=== PATIENT | male | born 1960 | race Caucasian/White ===

== ENCOUNTER 2018-09-20 09:22 | Inpatient (IN) | payer SELFPAY ==
[~2018-09-20] VITALS: Ht 177.8 cm; Wt 79.4 kg
[2018-09-20] MEDS ORDERED: DIAZEPAM 50 MG/10 ML MDV IVP ONE ×2 (09:40→11:50)
--- NOTE | 2018-09-20 09:44 | ER Report ---
History and Physical Time Seen By MD: 09:42 Hx. of Stated Complaint: DETOX FROM ALCOHOL - SEIZURE ACTIVITY REPORTED THIS AM. SI HPI/ROS CHIEF COMPLAINT: Alcohol intoxication withdrawal suicidal ideation HISTORY OF PRESENT ILLNESS: 58-year-old male comes emergency Department after 6 months of binge drinking after his both his mother father and brother all in the last 6 months. Patient states she's been trying to kill himself he alcohol drinks 2/5 of vodka daily plus a 12 pack of beer. Patient states that he awoke this morning is in multiple blackout sessions and was tremorous and decided he does not want to kill himself is not sure if he wants to kill himself but he wants help. Patient denies any chest pain at this time nausea vomiting diarrhea fever chills. Patient states that he has a history of alcohol intoxication binge drinking and alcohol issues in the past but he has been sober for the last 5-7 years. Patient denies any access to firearms. Patient otherwise has no plan. Patient states his last requisites morning. REVIEW OF SYSTEMS: Respiratory: No cough, no dyspnea. Cardiovascular: No chest pain, no palpitations. Gastrointestinal: No vomiting, no abdominal pain. Musculoskeletal: No back pain. Remainder of the 14 system rev: Yes Allergies: Coded Allergies: No Known Drug Allergies (Unverified , 09/20/18) Home Meds No Active Prescriptions or Reported Meds Reviewed Nurses Notes: Yes Old Medical Records Reviewed: Yes Constitutional Vital Sign - Last 24 Hours 09/20/18 09:33 Temp 98.2 Pulse 128 Resp 20 B/P (MAP) 198/139 Pulse Ox 96 O2 Delivery Room Air Physical Exam General Appearance: The patient is alert, has no immediate need for airway protection and no current signs of toxicity. Tremorous Eyes: Pupils equal and round no injection. Respiratory: Chest is non tender, lungs are clear to auscultation. Cardiac: regular rate and rhythm [ ] Gastrointestinal: Abdomen is soft and non tender, no masses, bowel sounds normal. Musculoskeletal: Neck: Neck is supple and non tender. Extremities have full range of motion and are non tender. Skin: No rashes or lesions. [ ] DIFFERENTIAL DIAGNOSIS: After history and physical exam differential diagnosis was considered for alcohol withdrawal alcohol intoxication and alcohol abuse suicidal ideation with intent and plan Medical Decision Making Data Points Result Diagram: 09/20/18 0941 09/20/18 0941 Laboratory Hematology Test 09/20/18 09:35 09/20/18 09:41 Urine Color Yellow Urine Clarity Slightly-cloudy Urine pH 7.0 pH (4.8-9.5) Urine Specific [place] 1.010 Urine Protein 30 mg/dL (NEGATIVE) Urine Glucose (UA) Negative mg/dL (NEGATIVE) Urine Ketones Negative mg/dL (NEGATIVE) Urine Blood Negative (NEGATIVE) Urine Nitrite Negative (NEGATIVE) Urine Bilirubin Negative (NEGATIVE) Urine Urobilinogen Negative mg/dL (0.2-1.9) Urine Leukocyte Esterase Negative (NEGATIVE) Urine RBC None /HPF (0-2/HPF) Urine WBC 5 /HPF (0-5/HPF) Urine Squamous Epithelial Cells Many /LPF (</=FEW) Urine Bacteria Negative /HPF (NONE-FEW) Urine Hyaline Casts Few /LPF (NONE-FEW) Urine Mucus None /HPF (NONE-FEW) Urine Opiates Screen Negative Urine Barbiturates Screen Negative Ur Tricyclic Antidepressants Screen Negative Urine Phencyclidine Screen Negative Urine Amphetamines Screen Negative Urine Benzodiazepines Screen Negative Urine Cocaine Screen Negative Urine Cannabinoids Screen Positive Red Blood Count 4.78 M/uL (4.00-5.60) Mean Corpuscular Volume 98.3 fL (80.0-96.0) Mean Corpuscular Hemoglobin 33.1 pg (26.0-33.0) Mean Corpuscular Hemoglobin Concent 33.7 g/dL (32.0-36.0) Red Cell Distribution Width 16.3 % (11.5-14.5) Mean Platelet Volume 6.8 fL (7.2-11.1) Neutrophils (%) (Auto) 62.3 % (39.4-72.5) Lymphocytes (%) (Auto) 24.6 % (17.6-49.6) Monocytes (%) (Auto) 12.2 % (4.1-12.4) Eosinophils (%) (Auto) 0.4 % (0.4-6.7) Basophils (%) (Auto) 0.5 % (0.3-1.4) Nucleated RBC Relative Count (auto) 0.1 /100WBC Neutrophils # (Auto) 3.6 K/uL (2.0-7.4) Lymphocytes # (Auto) 1.4 K/uL (1.3-3.6) Monocytes # (Auto) 0.7 K/uL (0.3-1.0) Eosinophils # (Auto) 0.0 K/uL (0.0-0.5) Basophils # (Auto) 0.0 K/uL (0.0-0.1) Nucleated RBC Absolute Count (auto) 0.01 K/uL Sodium Level 137 mmol/L (137-145) Potassium Level 3.8 mmol/L (3.5-5.0) Chloride Level 100 mmol/L (98-107) Carbon Dioxide Level 23 mmol/L (22-30) Blood Urea Nitrogen 2 mg/dl (9-21) Creatinine 1.10 mg/dl (0.66-1.25) Glomerular Filtration Rate Calc > 60.0 Random Glucose 109 mg/dl (75-110) Calcium Level 8.9 mg/dl (8.4-10.2) Magnesium Level 1.4 mg/dl (1.7-2.2) Total Bilirubin 0.8 mg/dl (0.2-1.3) Aspartate Amino Transf (AST/SGOT) 353 U/L (0-35) Alanine Aminotransferase (ALT/SGPT) 255 U/L (0-56) Alkaline Phosphatase 200 U/L (0-126) Troponin I < 0.012 ng/ml Total Protein 8.1 g/dl (6.3-8.2) Albumin 4.6 g/dl (3.5-5.0) Salicylates Level < 10 mg/L Salicylate Last Dose Date unk Acetaminophen Level < 10 ug/ml Serum Alcohol 17 mg/dl Chemistry Test 09/20/18 09:35 09/20/18 09:41 Urine Color Yellow Urine Clarity Slightly-cloudy Urine pH 7.0 pH (4.8-9.5) Urine Specific [place] 1.010 Urine Protein 30 mg/dL (NEGATIVE) Urine Glucose (UA) Negative mg/dL (NEGATIVE) Urine Ketones Negative mg/dL (NEGATIVE) Urine Blood Negative (NEGATIVE) Urine Nitrite Negative (NEGATIVE) Urine Bilirubin Negative (NEGATIVE) Urine Urobilinogen Negative mg/dL (0.2-1.9) Urine Leukocyte Esterase Negative (NEGATIVE) Urine RBC None /HPF (0-2/HPF) Urine WBC 5 /HPF (0-5/HPF) Urine Squamous Epithelial Cells Many /LPF (</=FEW) Urine Bacteria Negative /HPF (NONE-FEW) Urine Hyaline Casts Few /LPF (NONE-FEW) Urine Mucus None /HPF (NONE-FEW) Urine Opiates Screen Negative Urine Barbiturates Screen Negative Ur Tricyclic Antidepressants Screen Negative Urine Phencyclidine Screen Negative Urine Amphetamines Screen Negative Urine Benzodiazepines Screen Negative Urine Cocaine Screen Negative Urine Cannabinoids Screen Positive White Blood Count 5.7 k/uL (4.5-11.0) Red Blood Count 4.78 M/uL (4.00-5.60) Hemoglobin 15.8 g/dL (14.0-18.0) Hematocrit 47.0 % (42.0-52.0) Mean Corpuscular Volume 98.3 fL (80.0-96.0) Mean Corpuscular Hemoglobin 33.1 pg (26.0-33.0) Mean Corpuscular Hemoglobin Concent 33.7 g/dL (32.0-36.0) Red Cell Distribution Width 16.3 % (11.5-14.5) Platelet Count 268 K/uL (150-450) Mean Platelet Volume 6.8 fL (7.2-11.1) Neutrophils (%) (Auto) 62.3 % (39.4-72.5) Lymphocytes (%) (Auto) 24.6 % (17.6-49.6) Monocytes (%) (Auto) 12.2 % (4.1-12.4) Eosinophils (%) (Auto) 0.4 % (0.4-6.7) Basophils (%) (Auto) 0.5 % (0.3-1.4) Nucleated RBC Relative Count (auto) 0.1 /100WBC Neutrophils # (Auto) 3.6 K/uL (2.0-7.4) Lymphocytes # (Auto) 1.4 K/uL (1.3-3.6) Monocytes # (Auto) 0.7 K/uL (0.3-1.0) Eosinophils # (Auto) 0.0 K/uL (0.0-0.5) Basophils # (Auto) 0.0 K/uL (0.0-0.1) Nucleated RBC Absolute Count (auto) 0.01 K/uL Glomerular Filtration Rate Calc > 60.0 Calcium Level 8.9 mg/dl (8.4-10.2) Magnesium Level 1.4 mg/dl (1.7-2.2) Total Bilirubin 0.8 mg/dl (0.2-1.3) Aspartate Amino Transf (AST/SGOT) 353 U/L (0-35) Alanine Aminotransferase (ALT/SGPT) 255 U/L (0-56) Alkaline Phosphatase 200 U/L (0-126) Troponin I < 0.012 ng/ml Total Protein 8.1 g/dl (6.3-8.2) Albumin 4.6 g/dl (3.5-5.0) Salicylates Level < 10 mg/L Salicylate Last Dose Date unk Acetaminophen Level < 10 ug/ml Serum Alcohol 17 mg/dl Toxicology Test 09/20/18 09:35 09/20/18 09:41 Urine Opiates Screen Negative Urine Barbiturates Screen Negative Ur Tricyclic Antidepressants Screen Negative Urine Phencyclidine Screen Negative Urine Amphetamines Screen Negative Urine Benzodiazepines Screen Negative Urine Cocaine Screen Negative Urine Cannabinoids Screen Positive Salicylates Level < 10 mg/L Salicylate Last Dose Date unk Acetaminophen Level < 10 ug/ml Serum Alcohol 17 mg/dl Urinalysis Test 09/20/18 09:35 Urine Color Yellow Urine Clarity Slightly-cloudy Urine pH 7.0 pH (4.8-9.5) Urine Specific [place] 1.010 Urine Protein 30 mg/dL (NEGATIVE) Urine Glucose (UA) Negative mg/dL (NEGATIVE) Urine Ketones Negative mg/dL (NEGATIVE) Urine Blood Negative (NEGATIVE) Urine Nitrite Negative (NEGATIVE) Urine Bilirubin Negative (NEGATIVE) Urine Urobilinogen Negative mg/dL (0.2-1.9) Urine Leukocyte Esterase Negative (NEGATIVE) Urine RBC None /HPF (0-2/HPF) Urine WBC 5 /HPF (0-5/HPF) Urine Squamous Epithelial Cells Many /LPF (</=FEW) Urine Bacteria Negative /HPF (NONE-FEW) Urine Hyaline Casts Few /LPF (NONE-FEW) Urine Mucus None /HPF (NONE-FEW) ED Course/Re-evaluation ED Course ED course 58-year-old male presents with alcohol withdrawal alcohol level is only 17 received 10 of Valium banana bag he is suicidal seen and evaluated by behavioral health will be acceptable behavioral health but due to impending DTs be admitted to the floor for further workup and evaluation and then consulted with behavioral health for suicidal ideation alcohol withdrawal Decision to Disposition Date: Sep 20, 2018 Decision to Disposition Time: 12:00 Depart Departure Latest Vital Signs Vital Signs Date Time Temp Pulse Resp B/P (MAP) Pulse Ox O2 Delivery O2 Flow Rate FiO2 09/20/18 09:33 98.2 128 20 198/139 96 Room Air Impression: Primary Impression: Alcohol abuse Additional Impression: Alcohol withdrawal Condition: Improved Disposition: Admitted from ER New Scripts No Active Prescriptions or Reported Meds Problem Qualifiers SHRUTHI ROMAN MD Sep 20, 2018 09:44
[2018-09-20 09:50] LABS: PLATELET COUNT, AUTOMATED 268 K/uL (150-450)
[2018-09-20] MEDS ORDERED: ONDANSETRON 4 MG/2 ML VIAL IVP ONE ×2 (09:55→11:50)
[2018-09-20] MEDS ORDERED: THIAMINE HCL(*) 200 MG/2 ML IN 100 MG, FOLIC ACID(*) 50 MG/10 ML INJ 1 MG, MULTIVITAMIN... IV ONE (09:55)
[2018-09-20] MEDS ORDERED: THIAMINE HCL 200 MG/2 ML INJ ONE (09:57)
--- NOTE | 2018-09-20 11:01 | EKG ---
FACILITY: [facility] - [place] PATIENT NAME: BONY RESENDEZ : [id number] MR: [id number] V: [id number] EXAM DATE: ORDERING PHYSICIAN: SHRUTHI ROMAN TECHNOLOGIST: Test Reason : withdrawl Blood Pressure : / mmHG Vent. Rate : 112 BPM Atrial Rate : 112 BPM P-R Int : 134 ms QRS Dur : 082 ms QT Int : 372 ms P-R-T Axes : 043 -26 036 degrees QTc Int : 507 ms Sinus tachycardia Otherwise normal ECG No previous ECGs available Confirmed by Sal Harvey ([id number]) on 09/20/2018 4:20:10 PM Referred By: Confirmed By:Sal Rivera
[2018-09-20] MEDS ORDERED: ACETAMINOPHEN 325 MG TAB PO PRN (12:45)
[2018-09-20] MEDS ORDERED: FLUSH 10 ML SYR IVP PRN (12:45)
[2018-09-20] MEDS ORDERED: DIAZEPAM 10 MG TAB PO PRN (12:45)
[2018-09-20] MEDS ORDERED: ONDANSETRON 4 MG/2 ML VIAL IVP PRN (12:45)
[2018-09-20 13:07] VITALS: BP 175/128
[2018-09-20] MEDS: DIAZEPAM 10 MG TAB PO PRN ×4 (13:16→17:36)
[2018-09-20] MEDS ORDERED: hydrALAZINE HCL 20 MG/ML VIAL IVP PRN (13:25)
[2018-09-20 15:10] VITALS: BMI 25.1
[2018-09-20 15:24] VITALS: BP 144/105
--- NOTE | 2018-09-20 15:27 | History & Physical ---
History of Present Illness Chief Complaint alcohol withdrawal History of Present Illness 58M admitted for EtOH withdrawal. PMHx significant for HTN, ETOH abuse with prolonged period sobriety until , DVT/PE. Reportedly multiple losses in family over last 6 months culminating with of in April. Stopped taking medication for HTN, anticoagulation and began drinking daily. Reports intent to harm self indirectly with these actions and depression from the losses.. Presented voicing desire for help and voluntarily came into hospital. History Problems: (1) HTN (hypertension) (2) DVT (deep venous thrombosis) (3) Alcohol abuse Status: Acute Home Meds No Active Prescriptions or Reported Meds Allergies: Coded Allergies: No Known Drug Allergies (Unverified , 09/20/18) Hx Smoking: Yes Smoking Status: Former Smoker Hx Alcohol Use: Yes Alcohol Use: Currently Alcohol Used: Beer, Liquor Alcohol Withdrawl Symptoms: Tremors, Heart Racing, Nausea/Vomiting Hx Substance Use Disorder: Yes Social Drug Use: Occasional Social Drugs: Marijuana Other Social Drugs: Past opiod abuse Amount Of Social Drug/s Used: Daily marijuana since June. Currently out of supply History of IV Drug Use: No Review of Systems All Systems Reviewed/Normal: Yes, Except as Noted Gastrointestinal: Nausea Musculoskeletal: Other (tremor) Exam Vital Signs Vital Signs Date Time Temp Pulse Resp B/P (MAP) Pulse Ox O2 Delivery O2 Flow Rate FiO2 09/20/18 13:07 99.0 101 16 175/128 (144) 96 Nasal Cannula 1.5 General Appearance: Alert, Awake, Afebrile (mild distress) Neuro: No Gross deficits ENT: Normal Cardiovascular: Normal Rhythm & Peripheral Pulses (tachycardic) Respiratory: No Respiratory Distress GI: Abd Soft and Non-Tender Extremities: Soft and Non Tender, Warm, Pulses, Perfused Medical Decision Making Data Points Result Diagram: 09/20/18 0941 09/20/18 0941 Assessment and Plan Problems: (1) Alcohol withdrawal Status: Acute Assessment & Plan: Begin CIWA, thiamine, folate. BHS following. (2) Depression Assessment & Plan: Per patient was trying to harm self though not actively suicidal after of multiple family members. Psychiatry to see patient. (3) DVT (deep venous thrombosis) Assessment & Plan: Previously on Eliquis. Will resume. (4) HTN (hypertension) Assessment & Plan: Previously on lisinopril, will resume at lower dose as well as use PRN hydralazine. Venous Thromboembolism Antithrombotics Is Pt On Any Antithrombotics?: Yes Exam Sepsis Risk: No Definite Risk OLVERA STEVENSON BLANCO DO Sep 20, 2018 15:27
[2018-09-20 15:44] VITALS: Ht 177.8 cm; Wt 79.4 kg
[2018-09-20 16:29] VITALS: BP 124/87
[2018-09-20 17:29] VITALS: BP 124/90
[2018-09-20 18:44] VITALS: BP 142/93
[2018-09-20] MEDS: APIXABAN 2.5 MG TABLET PO SCH (20:04)
[2018-09-20] MEDS ORDERED: CLON-331 PO (20:06)
[2018-09-20] MEDS ORDERED: ESCI20TA38 PO (20:06)
[2018-09-20] MEDS ORDERED: APIX2.5T PO (20:06)
[2018-09-20] MEDS ORDERED: LISI1TAB61 PO (20:06)
[2018-09-20] MEDS ORDERED: GABA-549 PO (20:06)
[2018-09-20 23:26] VITALS: BP 120/79
[2018-09-21 06:05] VITALS: BP 124/80
[2018-09-21 07:02] VITALS: BP 153/107
[2018-09-21] MEDS: APIXABAN 2.5 MG TABLET PO SCH (08:37)
[2018-09-21] MEDS ORDERED: LISINOPRIL 10 MG TAB PO SCH (09:00)
[2018-09-21] MEDS ORDERED: FOLIC ACID 1 MG TAB PO SCH (09:00)
[2018-09-21] MEDS ORDERED: THIAMINE HCL 200 MG/2 ML INJ IVP SCH (09:00)
[2018-09-21] MEDS ORDERED: ENOXAPARIN 40 MG/0.4ML SYR SC SCH (09:00)
--- NOTE | 2018-09-21 09:00 | Hospitalist Depart ---
Discharge Summary Reason for Hosp/Final Diag: (1) Alcohol withdrawal Status: Acute Hospital Course & Plan: He was placed on CIWA, thiamine, folate. Dr. Garrison has accepted the patient for further management. He will be transferred to [facility] unit today. (2) Depression Hospital Course & Plan: Per patient was trying to harm self though not actively suicidal after of multiple family members. Psychiatry to see patient. (3) DVT (deep venous thrombosis) Hospital Course & Plan: Previously on Eliquis. Will resume. (4) HTN (hypertension) Status: Chronic Hospital Course & Plan: Previously on lisinopril, will resume at lower dose. Departure Latest Vital Signs Vital Signs 09/21/18 07:02 Temp 98.1 Pulse 80 Resp 20 B/P (MAP) 153/107 (122) Pulse Ox 99 O2 Delivery Nasal Cannula O2 Flow Rate 1.0 Weight (Pounds): 175 Result Diagram: 09/20/18 0941 09/21/18 0543 Condition: Improved Discharge: [facility] Discharge Instructions Home Meds Reported Medications Apixaban (ELIQUIS) 2.5 Mg Tablet, 5 MG PO QDAY 09/20/18 Lisinopril/Hydrochlorothiazide (ZESTORETIC 20-25 MG TABLET) 1 Each Tablet, 1 TAB PO BID 09/20/18 Escitalopram Oxalate (LEXAPRO) 20 Mg Tablet, 20 MG PO QDAY, TAB 09/20/18 Gabapentin (GABAPENTIN) 300 Mg Capsule, 600 MG PO QID, CAPSULE 09/20/18 Clonazepam (CLONAZEPAM) 0.5 Mg Tablet, 0.5 MG PO BID PRN for ANXIETY 09/20/18 Diet: Regular Activity: As Tolerated Venous Thromboembolism Antithrombotics Is Pt On Any Antithrombotics?: Yes Problem Qualifiers (1) HTN (hypertension): Hypertension type: essential hypertension Qualified Codes: I10 - Essential (primary) hypertension RAUDEL KNAPP Sep 21, 2018 09:00
[2018-09-23] MEDS ORDERED: INFLUENZA VIRUS VAC 0.5ML SYR IM ONLY ONE (09:00)
[2018-09-24] MEDS ORDERED: THIAMINE HCL 100 MG TAB PO SCH (09:00)
== END 2018-09-21 10:25 | DRG 897 ==
LOC: ER 09:22 → MED 12:27
PROVIDERS: ADMIT Internal Medicine; ATTEND Internal Medicine
DX: F10.230 Alcohol dependence with withdrawal, uncomplicated (principal); R45.851 Suicidal ideations; I10 Essential (primary) hypertension; F32.9 Major depressive disorder, single episode, unspecified; Z86.718 Personal history of other venous thrombosis and embolism; Z79.01 Long term (current) use of anticoagulants; Z63.4 Disappearance and death of family member
CPT/HCPCS: 36415; 80305; 80320; 80329; 81001; 82040; 82247; 82310; 82374; 82435; 82565; 82947; 83735; 84075; 84132; 84155; 84295; 84443; 84450; 84460; 84484; 84520; 85025; 93005; J2405; J3360; J3411; J7030

== ENCOUNTER 2018-09-21 10:26 | Inpatient (IN) | payer SELFPAY ==
[2018-09-20 15:44] VITALS: Ht 182.9 cm; Wt 81.2 kg
[~2018-09-21] VITALS: Ht 182.9 cm; Wt 81.2 kg
[~2018-09-21 10:26] MED LIST: APIX2.5T PO; CLON-331 PO; ESCI20TA38 PO; GABA-549 PO; LISI1TAB61 PO
[2018-09-21] MEDS ORDERED: ACETAMINOPHEN 325 MG TAB PO PRN (10:40)
[2018-09-21 10:54] VITALS: BP 134/92
[2018-09-21] MEDS ORDERED: MAG HYD/AL HYD/SIMETH 30ML UDC PO PRN (11:00)
[2018-09-21] MEDS: DIAZEPAM 10 MG TAB PO PRN ×4 (11:07→15:49)
[2018-09-21 12:55] VITALS: BP 108/78
[2018-09-21 14:20] VITALS: BP 94/76
[2018-09-21 15:41] VITALS: BP 95/89
--- NOTE | 2018-09-21 17:06 | HISTORY AND PHYSICAL ---
DATE OF ADMISSION: September 21, 2018 ATTENDING PHYSICIAN Tiffany Garrison MD The patient was interviewed on September 21, 2018, at 11 a.m. for this history and physical. CHIEF COMPLAINT "I haven't drank in 18 years, but I've had a lot happening." HISTORY OF PRESENT ILLNESS This is the first ever psychiatric hospitalization for this 58-year-old male who is here for alcohol detox as well as bereavement with suicidal ideation. The patient reports that he had been sober for 19 years, but he fell off the wagon six months ago after his mother . Two months later, his father also . One month after that, his brother was killed in a helicopter accident in [place], and then two months ago, his suddenly, and he says, "That is when I just fell apart." He started drinking pretty much 24 hours a day for the past month now. He has been drinking pints of hard liquor as well as several six- packs of beer. He says he was suicidal, and his plan was to drink himself to . On the day of admission, he decided that he needed some help and drove himself to the hospital. In the Emergency Room, his blood alcohol was 17. He stated to the ER that he had had two seizures the night before, so he was admitted to the medical service overnight where he received a total of 100 mg of Valium for withdrawal symptoms. This morning, he was medically stabilized for transfer to Psychiatry where he will continue his detox with oral Valium, and he will receive treatment for depression with suicidal ideation. PAST PSYCHIATRIC HISTORY He had one 90-day stay for alcohol rehab in the year 1999 at the in [place], [place]. He was attending AA meetings regularly over the past 19 years to maintain his sobriety. He has never been inpatient on a psychiatric unit before. He has never had a suicide attempt. He has never been in outpatient therapy. He denies any past history of depression or medication for depression. PAST MEDICAL HISTORY 1. 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 He subsequently had multiple surgeries. 2. He has broken his neck twice, also in work-related accidents. 3. He suffered DVTs and was on warfarin for several years. Then, he went off warfarin, and about a year after stopping it, he suffered a pulmonary embolism. He has been on Eliquis ever since then with good results. FAMILY PSYCHIATRIC HISTORY Unknown. SOCIAL HISTORY The patient was born and raised in [place], [place]. He graduated from [employer] in 1976. He attended two years at the [employer], but did not get a degree. 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 His first two marriages ended in divorce. His third marriage lasted 22 years to the woman who just in June. He has no children. He says after she , he put all of their things in storage and moved back to [place] where he intended to drink himself to . He says he does have some cousins here in town whom he has not been in touch with for 30 years. SUBSTANCE ABUSE HISTORY He was a heavy drinker in his earlier years, but then stopped for 19 years as noted above. He has been drinking heavily for the past six months. After his ankle surgeries many years ago, he went through three or four years of opiate addiction, but finally stopped taking opiates and has had none since then. He does use cannabis, and he says his most recent time was two weeks ago. PHYSICAL EXAMINATION Please see the report from the Emergency Room and the medical service chart. LABORATORY STUDIES We did not repeat any studies here on [facility]. Please see his previous chart from the ER and the medical floor. Of note, his MCV was elevated at 98.3. The rest of the CBC was essentially normal. His chemistry panel was significant for a low calcium at 8.2, low magnesium at 1.4. These were replaced with a banana bag. LFTs were elevated, AST 303, ALT 193, alkaline phosphatase 175, total protein low at 5.8, albumin low at 3.3. TSH 4.61, within normal limits. Tox screen was positive for cannabinoids. Serum alcohol was 17. Urinalysis was essentially normal. MENTAL STATUS EXAMINATION This morning, the patient is casually groomed, dressed in hospital scrubs. He was very tearful and needed to stop talking several times to compose himself. He was cooperative and made fair eye contact. His speech was normal in rate, tone, and volume. Mood and affect were significantly depressed. Thought process was logical and goal directed. Thought content was positive for suicidal ideation. He denies any current plan or intent. There was no evidence of homicidal ideation, auditory hallucinations, visual hallucinations, or delusions. He is alert and fully oriented to person, place, time, and situation. Memory is intact for immediate, recent, and remote recall. Insight and judgment are fair. IMPRESSION 1. Alcohol use disorder, severe. 2. Bereavement. PLAN He was admitted to [facility]. He is being maintained on suicide precautions. He will be detoxed using the CIWA protocol with Valium. We will check his liver functions tomorrow and switch to Ativan if we note his liver functions are increasing. He will attend individual, group, and milieu therapies. His estimated length of stay will be three to five days. [facility]
--- NOTE | 2018-09-21 19:57 | NUR ---
BHS REPORT FROM DONALDO/RN. WILL ASSUME CARE OF PT AT THIS TIME. PT RESTING IN BED. WHEN ASKED IF HE NEEDED ANYTHING, HE STATED "JUST TO GET THE FUCK OUT OF HERE". PT IS UPSET ABOUT BEING "LOCKED UP, LIKE A LONGTERM, STARING AT A CONCRETE WALL". PT STATES HE ISN'T GOING TO NEED ANYTHING ELSE TONIGHT. PT IS ANGRY HE IS HERE.
[2018-09-21] MEDS: APIXABAN 2.5 MG TABLET PO SCH (20:58)
--- NOTE | 2018-09-21 20:58 | NUR ---
TRIED TO GET PT TO TAKE HIS NIGHT MED (ELIQUIS). PT REFUSED. REMINDED THE IMPORTANCE OF THE MEDICATION AND TO NOT GET BEHIND. PT CONTINUES TO SAY "NO, IT WILL PROBABLY COST ME ANOTHER 24HOURS". PT CONTINUED TO DECLINE AND STATES "IM FINE".
[2018-09-22] MEDS: FOLIC ACID 1 MG TAB PO SCH ×2 (08:22→09:18)
[2018-09-22] MEDS: APIXABAN 2.5 MG TABLET PO SCH ×3 (08:22→20:32)
[2018-09-22] MEDS: THIAMINE HCL 100 MG TAB PO SCH ×2 (08:23→09:19)
[2018-09-22] MEDS: MULTIVITAMINS TAB PO SCH ×2 (08:23→09:19)
[2018-09-22] MEDS: LISINOPRIL 10 MG TAB PO SCH ×2 (08:23→09:19)
--- NOTE | 2018-09-22 08:23 | NUR ---
PT REFUSED ALL MEDICATIONS, CIWA TESTING, VITAL SIGNS, BREAKFAST AND WATER. STATES "EVERY TIME YOU GUYS GIVE ME SOMETHING I NEED TO STAY ANOTHER 24 HOURS." PT CLAIMS WE ARE HOLDING HIM AGAINST HIS WILL SO WE CAN PAY FOR THE ADDITION TO THE HOSPITAL.
[2018-09-22] MEDS: SERTRALINE HCL 50 MG TAB PO SCH (09:19)
[2018-09-22 09:25] VITALS: BP 132/78
--- NOTE | 2018-09-22 12:38 | BHS Progress Note ---
BHS - Subjective Progress Notes Subjective Pt seen in treatment team with his friend Connie on speaker phone. Yesterday pt got angry during a group-- he was mad about watching a video with "a lady younger than me telling me to pray..... God has deserted me...." He submitted an AMA letter yesterday afternoon, and he pretty much stayed mad all yesterday afternoon into this morning, refusing vitals, food, drink, meds, and lab draw. We spoke this morning and he calmed down-- I explained that I will not discharge him until I see that he is doing better, that depression is lifting. I explaine d that he has a lot of risk factors for suicide right now, that we are here to help him. He agreed that he needs the help, and he rescinded his AMA discharge request, remaining here voluntarily. He agreed to plan of trial of zoloft q am and remeron q HS, since sleep has been a significant problem. Once he did agree to vitals, we see that they are WNL, and his CIWA score this am is a 2. Will DC CIWA protocol, but will order valium 20 mg at HS tonight times one in effort to wean him since he did have total 180mg valium over past 2 days. His friend Connie was very supportive during meeting, he was tearful several times. He still has significant depressed mood, also rates guilt and shame as "how high does your scale go?" Still passive SI, denies intent to self-harm here. Suicidal Ideation: Resolving Homicidal Ideation: None BHS - Objective Physical Exam Vital Signs Vital Signs 09/22/18 09:25 Temp 98.3 Pulse 79 Resp 18 B/P (MAP) 132/78 (96) Pulse Ox 91 O2 Delivery Room Air Muscle Strength and Tone: WNL Gait and Station: Steady BHS Medications Reviewed: Side Effects, Benefits of Medication, Risks Allergies Reviewed: Yes Mental Status Exam General Appearance: Casual, Good Eye Contact, Cooperative, Good Interaction, Tearful Speech: Clear, Spontaneous, Normal Rate, Normal Rhythm, Normal Volume, Normal Tone Mood: Dysthmic/Depressed Affect: Sad, Other (angry) Thought Process: Organized, Logical, Goal Directed Thought Content: Suicidal Ideation (passive SI); No Homicidal Ideation, No Delusions, No Auditory Halllucinations, No Visual Hallucinations, No Thought Broadcasting, No Ideas of Reference, No Obsessions, No Compulsions, No Other Sensorium: Clear Cognition: Alert & Oriented-Person, Alert & Oriented-Place, Alert & Oriented- Time, [id number]-[id number] Memory: Immediate, Recent, Remote Intelligence: Average Insight Judgment: Fair [facility] Assessment and Plan [id number] Encounter Date: Sep 22, 2018 [id number] Encounter Time: 08:30 [facility] Plan: Necessary Precautions, Individual/Group Therapy, Admin/Titrate Meds, Educate Patient Tobacco Medications: Started Multpiple Antipsychotics Used: No Problems: (1) Bereavement (2) Alcohol use disorder, severe, dependence HANS RUTLEDGE MD Sep 22, 2018 12:38
[2018-09-22] MEDS: NICOTINE POLACRILEX 4 MG LOZG PO PRN (16:09)
[2018-09-22] MEDS: MIRTAZAPINE 15 MG TAB PO SCH (20:33)
[2018-09-22 20:42] VITALS: BP 136/79
[2018-09-22] MEDS ORDERED: DIAZEPAM 10 MG TAB PO ONE (21:00)
[2018-09-23 06:10] VITALS: BP 146/97
[2018-09-23] MEDS: LISINOPRIL 10 MG TAB PO SCH (08:22)
[2018-09-23] MEDS: APIXABAN 2.5 MG TABLET PO SCH ×2 (08:22→21:21)
[2018-09-23] MEDS: THIAMINE HCL 100 MG TAB PO SCH (08:22)
[2018-09-23] MEDS: FOLIC ACID 1 MG TAB PO SCH (08:22)
[2018-09-23] MEDS: MULTIVITAMINS TAB PO SCH (08:22)
[2018-09-23] MEDS: SERTRALINE HCL 50 MG TAB PO SCH (08:22)
[2018-09-23] MEDS: hydrOXYzine PAMOATE 25 MG CAP PO PRN ×2 (08:39→21:21)
--- NOTE | 2018-09-23 09:44 | BHS Progress Note ---
[facility] - Subjective Progress Notes Subjective "I've lost four people in six months. To be honest the reason I came back to [place] is to kill myself. I was going to drink myself to . I was sober for 19 years and AA was a big part of that. 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, worked in [place], [facility], [place], [place], [place], [place] Suicidal Ideation: None Homicidal Ideation: None [facility] - Objective Physical Exam Vital Signs Vital Signs Date Time Temp Pulse Resp B/P (MAP) Pulse Ox O2 Delivery O2 Flow Rate FiO2 09/23/18 06:10 98.8 69 146/97 (113) 89 Room Air 09/22/18 09:25 18 Muscle Strength and Tone: WNL Gait and Station: Steady [facility] Medications Reviewed: Side Effects, Benefits of Medication, Risks Allergies Reviewed: Yes Mental Status Exam General Appearance: Casual, Good Eye Contact, Cooperative, Good Interaction, Tearful Speech: Clear, Spontaneous, Normal Rate, Normal Rhythm, Normal Volume, Normal Tone Mood: Dysthmic/Depressed Affect: Sad, Other (angry) Thought Process: Organized, Logical, Goal Directed Thought Content: Suicidal Ideation (denies SI); No Homicidal Ideation, No Delusions, No Auditory Halllucinations, No Visual Hallucinations, No Thought Broadcasting, No Ideas of Reference, No Obsessions, No Compulsions, No Other Sensorium: Clear Cognition: Alert & Oriented-Person, Alert & Oriented-Place, Alert & Oriented- Time, Gzwlu-Lpkcglcd-Nvzljeysl Memory: Immediate, Recent, Remote Intelligence: Average Insight Judgment: Fair Result Diagram: 09/22/18 1230 Lab Laboratory - CBC/BMP Diagrams 09/22/18 12:30 Imaging Medications (Trade) Dose Ordered Sig/Marycarmen Route PRN Reason Start Time Stop Time Status Last Admin Dose Admin Apixaban (Eliquis 2.5 Mg Tablet (Or Equiv)) 5 mg BID PO 09/21/18 21:00 10/21/18 20:59 09/23/18 08:22 Diazepam (Valium(*) 10 Mg Tab (Or Equiv)) 20 mg ONCE ONCE PO 09/22/18 21:00 09/22/18 21:01 DC 09/22/18 20:36 Folic Acid (Folic Acid (*) 1 Mg Tab) 1 mg QDAY PO 09/22/18 09:00 10/22/18 08:59 09/23/18 08:22 Hydroxyzine Pamoate (Vistaril(*) 25 Mg Cap (Or Equiv)) 50 mg Q6H PRN PO ANXIETY/AGITATION 09/23/18 08:25 10/23/18 08:24 09/23/18 08:39 Lisinopril (Prinivil 10 Mg Tab (Or Equiv)) 10 mg QDAY PO 09/22/18 09:00 10/22/18 08:59 09/23/18 08:22 Mirtazapine (Remeron 15 Mg Tab (Or Equiv)) 15 mg QHS PO 09/22/18 21:00 10/22/18 20:59 09/22/18 20:33 Multivitamins (Thera-M Enhanced Tab (Or Equiv)) 1 each QDAY PO 09/22/18 09:00 10/22/18 08:59 09/23/18 08:22 Nicotine Polacrilex (Commit 4 Mg Lozg (Or Equiv)) 4 mg Q1-2H PRN PO NICOTINE REPLACEMENT 09/22/18 15:55 10/22/18 15:54 09/22/18 16:09 Sertraline HCl (Zoloft 50 Mg Tab (Or Equiv)) 25 mg QAM PO 09/22/18 09:10 10/22/18 09:09 09/23/18 08:22 Thiamine HCl (Vitamin B-1(*) 100 Mg Tab (Or Equiv)) 100 mg QDAY PO 09/22/18 09:00 10/22/18 08:59 09/23/18 08:22 [facility] Assessment and Plan Xxot-ry-Yxjo Encounter Date: Sep 23, 2018 Ulxx-lr-Pefe Encounter Time: 09:40 S Plan: Necessary Precautions, Individual/Group Therapy, Admin/Titrate Meds, Educate Patient Tobacco Medications: Started Multpiple Antipsychotics Used: No Problems: (1) Alcohol use disorder, severe, dependence Status: Chronic (2) Depression Status: Chronic (3) Alcohol withdrawal Status: Resolved (4) Bereavement Status: Acute Condition Continue current medications and treatment Encourage NEELAM, ELLA follow upon once release Maintain precautions SWETHA MARI NP Sep 23, 2018 09:44
[2018-09-23] MEDS: NICOTINE POLACRILEX 4 MG LOZG PO PRN ×5 (09:55→21:56)
[2018-09-23 13:10] VITALS: BP 128/78
[2018-09-23 19:47] VITALS: BP 139/89
[2018-09-23] MEDS: MIRTAZAPINE 15 MG TAB PO SCH (21:21)
[2018-09-24 06:12] VITALS: BP 148/108
[2018-09-24 06:28] LABS: PLATELET COUNT, AUTOMATED 151 K/uL (150-450)
[2018-09-24] MEDS: SERTRALINE HCL 50 MG TAB PO SCH (08:21)
[2018-09-24] MEDS: NICOTINE POLACRILEX 4 MG LOZG PO PRN ×4 (08:22→19:45)
[2018-09-24] MEDS: FOLIC ACID 1 MG TAB PO SCH (08:22)
[2018-09-24] MEDS: APIXABAN 2.5 MG TABLET PO SCH ×2 (08:22→21:15)
[2018-09-24] MEDS: hydrOXYzine PAMOATE 25 MG CAP PO PRN ×2 (08:22→21:15)
[2018-09-24] MEDS: MULTIVITAMINS TAB PO SCH (08:22)
[2018-09-24] MEDS: THIAMINE HCL 100 MG TAB PO SCH (08:22)
[2018-09-24] MEDS: LISINOPRIL 10 MG TAB PO SCH (08:22)
--- NOTE | 2018-09-24 09:52 | BHS Progress Note ---
[facility] - Subjective Progress Notes Subjective "I didn't sleep very well. I'm still feeling anxiety. I'm working on this homework (wellness recovery plan) and for once in my life I'm being truthful with myself." Suicidal Ideation: None Homicidal Ideation: None [facility] - Objective Physical Exam Vital Signs Vital Signs Date Time Temp Pulse Resp B/P (MAP) Pulse Ox O2 Delivery O2 Flow Rate FiO2 09/24/18 06:12 99.8 70 148/108 (121) 91 Room Air 09/23/18 13:10 18 Muscle Strength and Tone: WNL Gait and Station: Steady [facility] Medications Reviewed: Side Effects, Benefits of Medication, Risks Allergies Reviewed: Yes Mental Status Exam General Appearance: Casual, Good Eye Contact, Cooperative, Good Interaction, Tearful Speech: Clear, Spontaneous, Normal Rate, Normal Rhythm, Normal Volume, Normal Tone Mood: Dysthmic/Depressed Affect: Sad, Anxious Thought Process: Organized, Logical, Goal Directed Thought Content: No Suicidal Ideation (denies SI), No Homicidal Ideation, No Delusions, No Auditory Halllucinations, No Visual Hallucinations, No Thought Broadcasting, No Ideas of Reference, No Obsessions, No Compulsions, No Other Sensorium: Clear Cognition: Alert & Oriented-Person, Alert & Oriented-Place, Alert & Oriented- Time, Egyob-Owkyaarv-Xqnbhqdyn Memory: Immediate, Recent, Remote Intelligence: Average Insight Judgment: Fair Result Diagram: 09/24/18 0616 09/24/1816 [facility] Assessment and Plan Mwpe-wr-Wbiy Encounter Date: Sep 24, 2018 Nydc-hw-Jjtp Encounter Time: 09:30 [facility] Plan: Necessary Precautions, Individual/Group Therapy, Admin/Titrate Meds, Educate Patient Tobacco Medications: Started Multpiple Antipsychotics Used: No Problems: (1) Depression Status: Chronic (2) Alcohol withdrawal Status: Resolved (3) Alcohol use disorder, severe, dependence Status: Chronic JENNIFER PEÑA NP Sep 24, 2018 09:52
[2018-09-24 10:00] VITALS: BP 139/99
[2018-09-24] MEDS ORDERED: DIAZEPAM 10 MG TAB PO ONE (10:35)
[2018-09-24 18:30] VITALS: BP 142/94
[2018-09-24] MEDS: MIRTAZAPINE 15 MG TAB PO SCH (21:15)
[2018-09-25 03:49] VITALS: BP 151/115
[2018-09-25] MEDS: NICOTINE POLACRILEX 4 MG LOZG PO PRN (07:31)
[2018-09-25] MEDS: APIXABAN 2.5 MG TABLET PO SCH (08:18)
[2018-09-25] MEDS: FOLIC ACID 1 MG TAB PO SCH (08:18)
[2018-09-25] MEDS: MULTIVITAMINS TAB PO SCH (08:18)
[2018-09-25] MEDS: LISINOPRIL 10 MG TAB PO SCH (08:18)
[2018-09-25] MEDS: SERTRALINE HCL 50 MG TAB PO SCH (08:18)
[2018-09-25] MEDS: THIAMINE HCL 100 MG TAB PO SCH (08:18)
[2018-09-25 08:30] VITALS: BP 149/115
[2018-09-25] MEDS ORDERED: LISINOPRIL 10 MG TAB PO ONE (08:55)
[2018-09-25 09:29] VITALS: BP 138/112
[2018-09-25] MEDS ORDERED: NALTREXONE HCL 50 MG TAB PO ONE (10:20)
[2018-09-25] MEDS ORDERED: MIRT-1 PO (10:26)
[2018-09-25] MEDS ORDERED: SERT25TA87 PO (10:26)
[2018-09-25] MEDS ORDERED: NICO4LOZ35 BC (10:27)
[2018-09-25] MEDS ORDERED: LISI-353 PO (10:29)
[2018-09-25] MEDS ORDERED: NALT50TA15 PO (10:29)
[2018-09-25 10:52] VITALS: BP 152/118
--- NOTE | 2018-09-25 12:30 | BHS Discharge Summary ---
[facility] Discharge Summary Rxqm-bf-Asng Encounter Date: Sep 25, 2018 Yoyi-oo-Rjqn Encounter Time: 10:00 Reason-Hosp/Final Diag (DSM-V): (1) Alcohol use disorder, severe, dependence Status: Chronic Hospital Course & Plan: DATE OF ADMISSION: September 21, 2018 ATTENDING PHYSICIAN Hans Rutledge MD The patient was interviewed on September 21, 2018, at 11 a.m. for this history and physical. CHIEF COMPLAINT "I haven't drank in 18 years, but I've had a lot happening." HISTORY OF PRESENT ILLNESS This is the first ever psychiatric hospitalization for this 58-year-old male who is here for alcohol detox as well as bereavement with suicidal ideation. The patient reports that he had been sober for 19 years, but he fell off the wagon six months ago after his mother . Two months later, his father also . One month after that, his brother was killed in a helicopter accident in [place], and then two months ago, his suddenly, and he says, "That is when I just fell apart." He started drinking pretty much 24 hours a day for the past month now. He has been drinking pints of hard liquor as well as several six- packs of beer. He says he was suicidal, and his plan was to drink himself to . On the day of admission, he decided that he needed some help and drove himself to the hospital. In the Emergency Room, his blood alcohol was 17. He stated to the ER that he had had two seizures the night before, so he was admitted to the medical service overnight where he received a total of 100 mg of Valium for withdrawal symptoms. This morning, he was medically stabilized for transfer to Psychiatry where he will continue his detox with oral Valium, and he will receive treatment for depression with suicidal ideation. PAST PSYCHIATRIC HISTORY He had one 90-day stay for alcohol rehab in the year 1999 at the [facility] in [place], [place]. He was attending AA meetings regularly over the past 19 years to maintain his sobriety. He has never been inpatient on a psychiatric unit before. He has never had a suicide attempt. He has never been in outpatient therapy. He denies any past history of depression or medication for depression. HOSPITAL COURSE Pt was admitted to [facility] and maintained on suicide precautions, with alcohol detox using valium and CIWA protocol. Detox was uncomplicated, and once completed we did wean him off valium gradually. He was very depressed and angry for the first day, refusing to attend groups, refusing meds, refusing food, and he signed a 24 hour notice to request discharge. The next day after we made it clear that he would NOT be discharged, due to severity of his depression, suicidal ideation, multiple risk factors, and need for safe detox-- after that he turned the corner, started participating, opened up about his multiple losses, met with some men from who came up to see him, and complied with recommended medications. We started zoloft for depression and remeron for sleep and these were well tolerated. He connected with his friend Connie and she was very supportive, attending our treatment team meetings by speaker phone. We discussed naltrexone to help manage cravings, and we did start him on that. He knows to stay away from opiates. On discharge his affect was much brighter, he was forward-thinking, he said "You guys saved my life, when I came in here I wanted to , and now I've got a To Do list and a lot of plans." He will follow up at [facility]. (2) Bereavement (3) Depression Status: Chronic Physical Exam Deferred Vital Signs 09/24/18 09/25/18 09/25/18 18:30 09:29 10:52 Temp 98.8 Pulse 104 Resp 18 B/P (MAP) 152/118 (129) Pulse Ox 93 O2 Delivery Room Air Mental Status Exam General Appearance: Casual, Well Groomed, Good Eye Contact, Cooperative, Polite, Good Interaction Speech: Clear, Spontaneous, Normal Rate, Normal Rhythm, Normal Volume, Normal Tone Mood: Euthymic Affect: Full and Appropriate, Calm Thought Process: Organized, Logical, Goal Directed Thought Content: No Suicidal Ideation, No Homicidal Ideation, No Delusions, No Auditory Halllucinations, No Visual Hallucinations, No Thought Broadcasting, No Ideas of Reference, No Obsessions, No Compulsions, No Other Sensorium: Clear Cognition: Alert & Oriented-Person, Alert & Oriented-Place, Alert & Oriented- Time, Vgqly-Nxwvqico-Adocmsufi Memory: Immediate, Recent, Remote Intelligence: Average Insight Judgment: Good Departure Result Diagram: 4/7/19 0616 4/7/19 0616 Item Value Date Time Sodium Level 139 mmol/L 09/24/18 0616 Potassium Level 3.7 mmol/L 09/24/18 0616 Chloride Level 111 mmol/L H 09/24/18 0616 Carbon Dioxide Level 23 mmol/L 09/24/18 0616 Blood Urea Nitrogen 15 mg/dl 09/24/18 0616 Creatinine 0.90 mg/dl 09/24/18 0616 Glomerular Filtration Rate Calc > 60.0 09/24/18 0616 Random Glucose 84 mg/dl 09/24/18 0616 Calcium Level 8.3 mg/dl L 09/24/18 0616 Total Bilirubin 0.2 mg/dl 09/24/18 0616 Aspartate Amino Transf (AST/SGOT) 109 U/L H 09/24/18 0616 Alanine Aminotransferase (ALT/SGPT) 118 U/L H 09/24/18 0616 Alkaline Phosphatase 140 U/L H 09/24/18 0616 Total Protein 5.6 g/dl L 09/24/18 0616 Albumin 3.1 g/dl L 09/24/18 0616 Albumin 3.7 g/dl 09/22/18 1230 Total Protein 6.4 g/dl 09/22/18 1230 Alkaline Phosphatase 184 U/L H 09/22/18 1230 Alanine Aminotransferase (ALT/SGPT) 193 U/L H 09/22/18 1230 Aspartate Amino Transf (AST/SGOT) 315 U/L H 09/22/18 1230 Total Bilirubin 0.7 mg/dl 09/22/18 1230 Calcium Level 8.5 mg/dl 09/22/18 1230 Random Glucose 79 mg/dl 09/22/18 1230 Glomerular Filtration Rate Calc > 60.0 09/22/18 1230 Creatinine 1.10 mg/dl 09/22/18 1230 Blood Urea Nitrogen 15 mg/dl 09/22/18 1230 Carbon Dioxide Level 28 mmol/L 09/22/18 1230 Chloride Level 105 mmol/L 09/22/18 1230 Potassium Level 4.2 mmol/L 09/22/18 1230 Sodium Level 139 mmol/L 09/22/18 1230 White Blood Count 4.0 k/uL L 09/24/18 0616 Red Blood Count 3.43 M/uL L 09/24/18 0616 Hemoglobin 11.5 g/dL L 09/24/18 06 Hematocrit 34.7 % L 09/24/18 06 Mean Corpuscular Volume 101.0 fL H 09/24/18 06 Mean Corpuscular Hemoglobin 33.4 pg H 09/24/18615 Mean Corpuscular Hemoglobin Concent 33.1 g/dL 09/24/18615 Red Cell Distribution Width 17.6 % H 09/24/18 06 Platelet Count 151 K/uL 09/24/18 06 Condition: Improved Discharge to: Home Discharge Instructions Home Meds Reported Medications Lisinopril/Hydrochlorothiazide (LISINOPRIL-HCTZ 20-12.5 MG TAB) 1 Each Tablet, 1 EACH PO QAM 09/25/18 Naltrexone Hcl (NALTREXONE HCL) 50 Mg Tablet, 50 MG PO QAM 09/25/18 Nicotine Polacrilex (NICOTINE LOZENGE) 4 Mg Lozenge, 4 MG BC Q1-2H PRN for NICOTINE REPLACEMENT, LOZENGE 09/25/18 Sertraline Hcl (ZOLOFT) 25 Mg Tablet, 1 TAB PO QDAY, TAB 09/25/18 Mirtazapine (REMERON) 15 Mg Tablet, 15 MG PO QHS 09/25/18 Apixaban (ELIQUIS) 2.5 Mg Tablet, 5 MG PO BID 09/20/18 Discontinued Reported Medications Escitalopram Oxalate (LEXAPRO) 20 Mg Tablet, 20 MG PO QDAY, TAB 09/20/18 Gabapentin (GABAPENTIN) 300 Mg Capsule, 600 MG PO QID, CAPSULE 09/20/18 Clonazepam (CLONAZEPAM) 0.5 Mg Tablet, 0.5 MG PO BID PRN for ANXIETY 09/20/18 Multpiple Antipsychotics Used: No Diet: Regular Special Instructions: Discharge home. Follow-up with Primary Care Provider concerning hypertension. Follow-up with AA, outpatient therapy, and medication management. ABSTAIN FROM ALCOHOL AND ALL ILLICIT SUBSTANCES. Call crisis line or return to Emergency Room for return of suicidal or homicidal thoughts. HANS RUTLEDGE MD Sep 25, 2018 12:30
[2018-09-26] MEDS ORDERED: LISINOPRIL 20 MG TAB PO SCH (09:00)
== END 2018-09-25 11:01 | disposition home or self-care (01) | DRG 897 ==
LOC: BHS 10:26
PROVIDERS: ADMIT Psychiatry & Neurology Psychiatry; ATTEND Psychiatry & Neurology Psychiatry
DX: F10.239 Alcohol dependence with withdrawal, unspecified (principal); R45.851 Suicidal ideations; F32.9 Major depressive disorder, single episode, unspecified; F41.9 Anxiety disorder, unspecified; R03.0 Elevated blood-pressure reading, without diagnosis of hypertension; Y90.0 Blood alcohol level of less than 20 mg/100 ml; Z63.4 Disappearance and death of family member
CPT/HCPCS: 36415; 82040; 82247; 82310; 82374; 82435; 82565; 82947; 84075; 84132; 84155; 84295; 84450; 84460; 84520; 85025; Q0177